=== PATIENT | male | born 2000 | race Caucasian/White ===

== ENCOUNTER → 2022-07-22 | Outpatient (CLI) | payer OTHER | LOC: M PLAIMG 12:19 | DX: M25.511 Pain in right shoulder (principal) ==

== ENCOUNTER 2023-11-15 05:55 | Day surgery (SDC) | payer OTHER ==
[~2023-11-15] VITALS: Ht 175.3 cm; Wt 104.3 kg
[~2023-11-15 05:55] MED LIST: IBUP200C28 PO
[2023-11-15] MEDS ORDERED: MIDAZOLAM INJ 2MG/2ML VIAL As Ordered ONE (06:41)
[2023-11-15] MEDS ORDERED: LIDOCAINE 2% 100MG/5ML SDV (FOR ANES.) As Ordered ONE (06:42)
[2023-11-15] MEDS ORDERED: propofoL 200 MG/20 ML VIAL As Ordered ONE (06:42)
[2023-11-15] MEDS ORDERED: fentaNYL 100 MCG/2 ML INJECTION As Ordered ONE (06:42)
[2023-11-15] MEDS ORDERED: ACETAMINOPHEN 1000MG 100ML IV BAG As Ordered ONE (06:42)
[2023-11-15] MEDS ORDERED: LR 1,000 ML IV SCH ×3 (06:45→10:50)
[2023-11-15] MEDS ORDERED: ROCURONIUM BROMIDE 50MG/5ML VIAL As Ordered ONE (07:05)
[2023-11-15] MEDS: fentaNYL 100 MCG/2 ML INJECTION IV PRN (07:25)
[2023-11-15] MEDS: MIDAZOLAM INJ 2MG/2ML VIAL IV PRN (07:25)
[2023-11-15] MEDS: ROPIvacaine 0.5% 30ML VIAL PN ONE (07:28)
[2023-11-15] MEDS: LIDOCAINE 1% SDV 5ML VIAL PN ONE (07:28)
[2023-11-15] MEDS: dexAMETHasone 10MG/1ML VIAL PRES.FREE PN ONE (07:28)
[2023-11-15] MEDS: ceFAZolin SOD 2 GM in IV 1 EA IV ONE (08:05)
[2023-11-15] MEDS: TRANEXAMIC ACID 100 MG/ML 10ML VIAL IV ONE (08:10)
[2023-11-15] MEDS ORDERED: KETOROLAC 60MG 2ML VIAL As Ordered ONE (08:11)
[2023-11-15] MEDS ORDERED: ONDANSETRON 4MG 2ML VIAL As Ordered ONE (08:11)
[2023-11-15] MEDS ORDERED: SUGAMMADEX SODIUM 500 MG/5 ML VIAL (BRIDION) As Ordered ONE (08:11)
[2023-11-15] MEDS: EPINEPHrine INJ 1 MG/ML 1ML AMP As Ordered ONE (08:59)
[2023-11-15] MEDS ORDERED: fentaNYL 100 MCG/2 ML INJECTION IV PRN ×2 (10:50)
[2023-11-15] MEDS ORDERED: MORPHINE 2 MG/ML 1ML VIAL IV PRN (10:50)
[2023-11-15] MEDS ORDERED: ONDANSETRON 4MG 2ML VIAL IV PRN ×2 (10:50)
[2023-11-15] MEDS ORDERED: oxyCODONE 5MG TAB PO PRN (10:50)
[2023-11-15] MEDS: VANCOMYCIN 1000MG/20ML VIAL As Ordered ONE (11:08)
[2023-11-15] MEDS: TRANEXAMIC ACID 100 MG/ML 10ML VIAL As Ordered ONE (11:08)
[2023-11-15 11:54] VITALS: BP 133/60; TEMP 98.3; O2SAT 99
== END 2023-11-15 12:10 | disposition home or self-care (01) ==
LOC: M SDC 05:55
PROVIDERS: ATTEND Orthopaedic Surgery
DX: M25.371 Other instability, right ankle (principal); M94.271 Chondromalacia, right ankle and joints of right foot; R26.2 Difficulty in walking, not elsewhere classified; M65.9 Synovitis and tenosynovitis, unspecified
CPT/HCPCS: 27696; 29897; 76000; C1713; J0131; J0171; J0690; J1100; J1885; J2250; J2405; J3010